=== PATIENT | female | born 1995 ===

== ENCOUNTER 2021-01-21 20:45 | Inpatient (IN) | payer OTHER ==
[~2021-01-21] VITALS: Ht 170.2 cm; Wt 76.7 kg
[2021-01-22] MEDS ORDERED: PRENATAL CAPLE1 EAC1 PO (14:12)
== END 2021-01-23 10:12 | disposition home or self-care (01) | DRG 832 ==
LOC: OBS/DEL 20:45 → LDR 01-22 13:15 → OBS/DEL 01-22 13:15 → LDR 01-23 10:12
PROVIDERS: ADMIT Obstetrics & Gynecology; ATTEND Obstetrics & Gynecology
PROC: 4A1HXFZ Monitoring of Products of Conception, Cardiac Rhythm, External Approach (ICD-10-PCS; principal; 2021-01-22)
PROC: BY4FZZZ Ultrasonography of Third Trimester, Single Fetus (ICD-10-PCS; 2021-01-22)
DX: O47.03 False labor before 37 completed weeks of gestation, third trimester (principal); O23.43 Unspecified infection of urinary tract in pregnancy, third trimester; Z3A.32 32 weeks gestation of pregnancy; Z20.822 Contact with and (suspected) exposure to COVID-19

== ENCOUNTER 2021-02-28 07:52 | Inpatient (IN) | payer OTHER ==
[~2021-02-28] VITALS: Ht 167.6 cm; Wt 77.6 kg
[~2021-02-28 07:52] MED LIST: PRENATAL CAPLE1 EAC1 PO
== END 2021-03-02 11:12 | disposition home or self-care (01) | DRG 807 ==
LOC: LDR 07:52 → OB/GYN 07:52
PROVIDERS: ADMIT Obstetrics & Gynecology; ATTEND Obstetrics & Gynecology
PROC: 10E0XZZ Delivery of Products of Conception, External Approach (ICD-10-PCS; principal; 2021-02-28)
PROC: 4A1HXFZ Monitoring of Products of Conception, Cardiac Rhythm, External Approach (ICD-10-PCS; 2021-02-28)
DX: O80 Encounter for full-term uncomplicated delivery (principal); Z37.0 Single live birth; Z3A.37 37 weeks gestation of pregnancy; Z20.822 Contact with and (suspected) exposure to COVID-19